=== PATIENT | male | born 1950 | race Caucasian/White ===

== ENCOUNTER 2016-11-29 12:41 | Emergency (ER) | payer MEDICARE, BC ==
[2015-10-22 11:30] VITALS: BMI 24.4
[~2016-11-29 12:41] MED LIST: ASPIRIN EC81 MG PO; BETAPACE 80 MG80 MG PO; BRILINTA90 MG PO; FLOMAX0.4 MG PO; MIRALAX17 GM PO; PRADAXA150 MG PO; PRILOSEC20 MG PO; PROBIOTIC PO; STOOL SOFTENER PO
== END 2016-11-29 14:58 | disposition home or self-care (01) ==
LOC: D.ER 12:41
DX: M54.16 Radiculopathy, lumbar region (principal); Z95.0 Presence of cardiac pacemaker

== ENCOUNTER 2017-12-05 20:27 | Observation (INO) | payer MEDICARE, BC ==
[~2017-12-05] VITALS: Ht 182.9 cm; Wt 81.6 kg
--- NOTE | ~2017-12-05 | MORECARE ---
CASE MANAGEMENT DISCHARGE SUMMARY PATIENT: ARMOND ALLEN UNIT: [id number] ADM DATE: 12/05/17 AGE: 67 : 48 SEX: M ROOM/BED: D.2230 AUTHOR: TIFFANY JIMENEZ PHYSICIAN: REFERRING PHYSICIAN: DANYA CHRISTIANSON MD DATE OF SERVICE: 12/08/17 Discharge Plan Patient Name: ARMOND ALLEN Facility: [facility]:[place] : 1950 Planned Disposition: Home Anticipated Discharge Date: 12/06/17 Discharge Date: 12/06/2017 Expected LOS: 1 Initial Reviewer: [email or web address] Initial Review Date: 12/06/2017 Generated: 12/08/17 10:29 am Comments DCP- Discharge Planning Updated by [email or web address]: Rhoda Lane on 12/06/17 12:[address] Patient Name: ARMOND ALLEN Admission Status: ER Accout number: [id number] Admission Date: 12-05-2017 : 1950 Admission Diagnosis: Attending: DANYA CHRISTIANSON Current LOS: 1 Anticipated DC Date: 12-06-2017 Planned Disposition: Home Primary Insurance: MEDICARE A & B Discharge Planning Comments: CM met with patient and his to discuss discharge planning. He lives with his . He is independent with all ADL's and IADL's. States he uses a cane for ambulation. Denies need for additional DME. Denies need for home health services. States they do not have any outside resources assisting in the home. No needs identified. To discharge home today. CM will continue to follow and assist with discharge planning/needs. Rope Laying Machine Operator: Rhoda Lane DCPIA - Discharge Planning Initial Assessment Updated by [email or web address]: Rhoda Lane on 12/06/17 1:44 pm * Is the patient Alert and Oriented? Yes * How many steps to enter\exit or inside your home? 0/0 * PCP Dr. Arango * Pharmacy [facility] [address] * Preadmission Environment Home with Family * ADLs Independent * Equipment Cane Walker * List name and contact numbers for known caregivers / representatives who currently or will assist patient after discharge: [facility] - [phone] * Verbal permission to speak to the caregivers and representatives has been obtained from the patient. Yes * Community resources currently utilized None * Additional services required to return to the preadmission environment? No * Can the patient safely return to the preadmission environment? Yes * Has this patient been hospitalized within the prior 30 days at any hospital? No Last DP export: 12/06/17 12:47 Patient Name: ARMOND ALLEN Page 85867 at 0929 All edits/amendments must be made on the electronic document DICTATION DATE: 12/08/17928 BOOK AGENT: JOSE 12/08/17928 RPT#: [id number] DC DATE:12/06/17 STATUS: DIS IN [facility] [address] [place] [address] END OF REPORT
--- NOTE | ~2017-12-05 | MORECARE ---
CASE MANAGEMENT DISCHARGE SUMMARY PATIENT: ARMOND ALLEN UNIT: [id number] ADM DATE: 12/05/17 AGE: 67 : 48 SEX: M ROOM/BED: D.2230 AUTHOR: TIFFANY JIMENEZ PHYSICIAN: REFERRING PHYSICIAN: DANYA CHRISTIANSON MD DATE OF SERVICE: 12/06/17 Discharge Plan Patient Name: ARMOND ALLEN Facility: [facility]:[place] : 1950 Planned Disposition: Home Anticipated Discharge Date: 12/06/17 Discharge Date: Expected LOS: 1 Initial Reviewer: [email or web address] Initial Review Date: 12/06/2017 Generated: 12/06/17 2:47 pm Comments DCP- Discharge Planning Updated by [email or web address]: Rhoda Lane on 12/06/17 12:[address] Patient Name: ARMOND ALLEN Admission Status: ER Accout number: [id number] Admission Date: 12-05-2017 : 1950 Admission Diagnosis: Attending: DANYA CHRISTIANSON Current LOS: 1 Anticipated DC Date: 12-06-2017 Planned Disposition: Home Primary Insurance: MEDICARE A & B Discharge Planning Comments: CM met with patient and his to discuss discharge planning. He lives with his . He is independent with all ADL's and IADL's. States he uses a cane for ambulation. Denies need for additional DME. Denies need for home health services. States they do not have any outside resources assisting in the home. No needs identified. To discharge home today. CM will continue to follow and assist with discharge planning/needs. Med Asst: Rhoda Lane DCPIA - Discharge Planning Initial Assessment Updated by [email or web address]: Rhoda Lane on 12/06/17 1:44 pm * Is the patient Alert and Oriented? Yes * How many steps to enter\exit or inside your home? 0/0 * PCP Dr. Arango * [facility] [address] * Preadmission Environment Home with Family * ADLs Independent * Equipment Cane Walker * List name and contact numbers for known caregivers / representatives who currently or will assist patient after discharge: [facility] - [phone] * Verbal permission to speak to the caregivers and representatives has been obtained from the patient. Yes * Community resources currently utilized None * Additional services required to return to the preadmission environment? No * Can the patient safely return to the preadmission environment? Yes * Has this patient been hospitalized within the prior 30 days at any hospital? No Patient Name: ARMODN ALLEN Page [phone] at 1347 All edits/amendments must be made on the electronic document DICTATION DATE: 12/06/171346 MANAGER LABOR DELIVERY: JOSE 12/06/171346 RPT#: [id number] DC DATE: STATUS: ADM IN [facility] [address] [place] [address] END OF REPORT
[2017-12-05] MEDS ORDERED: PEPCID40 MG PO (20:37)
[2017-12-05] MEDS ORDERED: LIPITOR20 MG PO (20:38)
[2017-12-05 20:53] LABS: BASOPHILS 0.6 % (0-2); EOSINOPHILS 1.5 % (0-7); HEMATOCRIT 43.3 % (42.0-54.0); HEMOGLOBIN 14.7 g/dL (13.5-17.5); IMMATURE GRANULOCYTES 0.2 % (0-5); MCH 28.9 pg (26.0-34.0); MCHC 33.9 g/dL (31.0-37.0); MCV 85.2 fL (80.0-100.0); MEAN PLATELET VOLUME 10.1 fL (7.4-10.4); MONOCYTES 11.2 % (2-11); NEUTROPHILS 53.5 % (40-80); PLATELET COUNT 229 10x3/uL (130-400); RBC 5.08 10x6/uL (4.20-6.10); RDW 13.7 % (11.5-14.5); WBC 6.5 10x3/uL (4.8-10.8)
[2017-12-05 21:01] LABS: INR 0.96 (0.85-1.17); PROTIME 12.4 SECONDS (11.6-15.0)
[2017-12-05 21:02] LABS: APTT 32.9 SECONDS (22.8-39.4)
[2017-12-05 21:09] LABS: ALBUMIN 3.5 g/dL (3.4-5.0); ALKALINE PHOSPHATASE 46 U/L (46-116); ALT (SGPT) 16 U/L (10-68); BILIRUBIN - TOTAL 0.29 mg/dL (0.2-1.3); CALC OSMOLALITY 285 mosm/kg (275-300); CARBON DIOXIDE 27.4 mmol/L (21.0-32.0); CHLORIDE - SERUM 106 mmol/L (98-107); CREATININE - SERUM 1.2 mg/dL (0.6-1.3); POTASSIUM - SERUM 3.9 mmol/L (3.5-5.1); PROTEIN - SERUM 6.9 g/dL (6.4-8.2); SODIUM 142 mmol/L (136-145); UREA NITROGEN 15 mg/dL (7-18); eGFR NON AFRICAN AMERICAN 64 mL/min (90-120)
[2017-12-05 21:10] LABS: GLUCOSE 129 mg/dL (74-106)
[2017-12-05 21:19] LABS: CKMB 1.8 U/L (0.0-3.6); CREATINE KINASE 138 UL (21-232)
[2017-12-05 21:22] LABS: TROPONIN-I < 0.017 ng/mL (0.000-0.060)
[2017-12-05 23:54] LABS: CREATINE KINASE 128 UL (21-232); TROPONIN-I < 0.017 ng/mL (0.000-0.060)
[2017-12-06 01:13] VITALS: BP 138/64; BMI 24.4
[2017-12-06 05:50] LABS: BASOPHILS 0.8 % (0-2); EOSINOPHILS 2.5 % (0-7); HEMATOCRIT 42.2 % (42.0-54.0); HEMOGLOBIN 14.3 g/dL (13.5-17.5); IMMATURE GRANULOCYTES 0.2 % (0-5); MCH 28.9 pg (26.0-34.0); MCHC 33.9 g/dL (31.0-37.0); MCV 85.3 fL (80.0-100.0); MEAN PLATELET VOLUME 10.4 fL (7.4-10.4); MONOCYTES 14.1 % (2-11); NEUTROPHILS 48.4 % (40-80); PLATELET COUNT 205 10x3/uL (130-400); RBC 4.95 10x6/uL (4.20-6.10); RDW 13.8 % (11.5-14.5); WBC 5.3 10x3/uL (4.8-10.8)
[2017-12-06 06:13] VITALS: BP 135/60
[2017-12-06 06:28] LABS: ALBUMIN 3.2 g/dL (3.4-5.0); ALKALINE PHOSPHATASE 41 U/L (46-116); ALT (SGPT) 14 U/L (10-68); BILIRUBIN - TOTAL 0.38 mg/dL (0.2-1.3); CALC OSMOLALITY 284 mosm/kg (275-300); CALCIUM 8.9 mg/dL (8.5-10.1); CARBON DIOXIDE 24.8 mmol/L (21.0-32.0); CHLORIDE - SERUM 107 mmol/L (98-107); CKMB 1.9 U/L (0.0-3.6); CREATINE KINASE 114 UL (21-232); CREATININE - SERUM 1.1 mg/dL (0.6-1.3); GLUCOSE 88 mg/dL (74-106); POTASSIUM - SERUM 3.9 mmol/L (3.5-5.1); PROTEIN - SERUM 6.4 g/dL (6.4-8.2); SODIUM 143 mmol/L (136-145); TROPONIN-I < 0.017 ng/mL (0.000-0.060); UREA NITROGEN 15 mg/dL (7-18); eGFR NON AFRICAN AMERICAN 70 mL/min (90-120)
[2017-12-06 09:07] VITALS: BP 129/54
[2017-12-06 10:16] VITALS: Ht 182.9 cm; Wt 81.6 kg
[2017-12-06 10:58] LABS: APPEARANCE CLEAR (CLEAR); BILIRUBIN NEGATIVE (NEGATIVE); COLOR YELLOW (YELLOW); GLUCOSE NEGATIVE (NEGATIVE); KETONE NEGATIVE (NEGATIVE); NITRITE NEGATIVE (NEGATIVE); PROTEIN NEGATIVE (NEGATIVE); SPECIFIC GRAVITY 1.015 (1.005-1.020); UROBILINOGEN NORMAL (NORMAL)
[2017-12-06 12:29] VITALS: BP 127/46
[2017-12-06 12:46] LABS: CKMB 1.7 U/L (0.0-3.6); CREATINE KINASE 106 UL (21-232); TROPONIN-I < 0.017 ng/mL (0.000-0.060)
[2017-12-06] MEDS ORDERED: CARAFATE1 G/10 ML PO (13:16)
[2017-12-06] MEDS ORDERED: PROTONIX40 MG PO (13:16)
[2017-12-06] MEDS ORDERED: PROTONIX20 MG PO (13:18)
== END 2017-12-06 15:01 | disposition home or self-care (01) ==
LOC: D.ER 20:27 → D.MS 22:30 → OBSVTIME 22:30 → D.M2 22:30 → D.MS 23:00
PROVIDERS: Family Medicine
DX: K29.50 Unspecified chronic gastritis without bleeding (principal); K44.9 Diaphragmatic hernia without obstruction or gangrene; K29.80 Duodenitis without bleeding; K21.0 Gastro-esophageal reflux disease with esophagitis; K25.9 Gastric ulcer, unspecified as acute or chronic, without hemorrhage or perforation; I10 Essential (primary) hypertension; I25.10 Atherosclerotic heart disease of native coronary artery without angina pectoris; Z95.0 Presence of cardiac pacemaker

== ENCOUNTER 2019-07-02 19:11 | Observation (INO) | payer MEDICARE, BC ==
[~2019-07-02] VITALS: Ht 182.9 cm; Wt 84.1 kg
[~2019-07-02 19:11] MED LIST changes: +CARAFATE1 G/10 ML PO; +LIPITOR20 MG PO; +PEPCID40 MG PO; +PROTONIX20 MG PO; +PROTONIX40 MG PO
[2019-07-02] MEDS ORDERED: PACERONE400 MG PO (19:20)
[2019-07-02] MEDS ORDERED: PEPCID40 MG PO (19:21)
[2019-07-02] MEDS ORDERED: ELIQUIS5 MG PO (19:21)
[2019-07-02] MEDS ORDERED: ASPIRIN EC81 M1 PO (19:22)
[2019-07-02 20:04] LABS: CALC OSMOLALITY 278 mosm/kg (275-300); CALCIUM 8.6 mg/dL (8.5-10.1); CARBON DIOXIDE 26.4 mmol/L (21.0-32.0); CHLORIDE - SERUM 106 mmol/L (98-107); CREATININE - SERUM 1.6 mg/dL (0.6-1.3); GLUCOSE 80 mg/dL (74-106); POTASSIUM - SERUM 4.2 mmol/L (3.5-5.1); SODIUM 140 mmol/L (136-145); UREA NITROGEN 15 mg/dL (7-18); eGFR NON AFRICAN AMERICAN 46 mL/min (90-120)
[2019-07-02 20:05] LABS: BASOPHILS 0.8 % (0-2); EOSINOPHILS 2.6 % (0-7); HEMATOCRIT 45.7 % (42.0-54.0); HEMOGLOBIN 14.7 g/dL (13.5-17.5); IMMATURE GRANULOCYTES 0.3 % (0-5); MCH 27.7 pg (26.0-34.0); MCHC 32.2 g/dL (31.0-37.0); MCV 86.1 fL (80.0-100.0); MEAN PLATELET VOLUME 9.7 fL (7.4-10.4); MONOCYTES 13.1 % (2-11); NEUTROPHILS 58.2 % (40-80); RBC 5.31 10x6/uL (4.20-6.10); RDW 15.1 % (11.5-14.5); WBC 7.2 10x3/uL (4.8-10.8)
[2019-07-02 20:07] LABS: PLATELET COUNT 255 10x3/uL (130-400)
[2019-07-02 20:11] LABS: APTT 35.8 SECONDS (22.8-39.4); INR 1.03 (0.85-1.17); PROTIME 13.4 SECONDS (11.6-15.0)
[2019-07-02 20:12] LABS: D-DIMER-QUANTITATIVE 0.56 ug/mLFEU (0.20-0.54)
[2019-07-02 20:19] LABS: ALBUMIN 3.8 g/dL (3.4-5.0); ALKALINE PHOSPHATASE 67 U/L (30-120); ALT (SGPT) 31 U/L (10-68); BILIRUBIN - TOTAL 0.48 mg/dL (0.2-1.3); MAGNESIUM - SERUM 2.3 mg/dL (1.8-2.4); PRO BNP 354 pg/mL (0-125); PROTEIN - SERUM 7.6 g/dL (6.4-8.2); THYROID STIMULATING HORMONE 7.62 uIU/mL (0.36-3.74)
[2019-07-02 20:21] LABS: TROPONIN-I < 0.017 ng/mL (0.000-0.060)
[2019-07-02] MEDS ORDERED: PACERONE200 MG PO (22:48)
[2019-07-02] MEDS ORDERED: MIRALAX17 GM PO (22:50)
--- NOTE | 2019-07-02 22:57 | NUR ---
PATIENT ARRIVED FROM THE ER. PATIENT IS ALERT AND ORIENTED, RESTING COMFORTABLY IN BED. RESPIRATIONS ARE EVEN AND UNLABORED. NO S/S OF DISTRESS. NO C/O PAIN. CALL LIGHT WITHIN REACH. WILL CPOC.
[2019-07-02 23:26] VITALS: Ht 182.9 cm; Wt 84.1 kg
[2019-07-03 00:30] VITALS: BP 154/67
[2019-07-03 04:39] VITALS: BP 130/53
[2019-07-03 07:38] VITALS: BP 125/51
[2019-07-03 11:18] VITALS: BP 126/51
--- NOTE | 2019-07-03 15:30 | NUR ---
URINE SPECIMEN COLLECTED AND TAKEN TO LAB. WILL MONITOR.
[2019-07-03 15:39] VITALS: BP 140/57
[2019-07-03 16:03] LABS: BILIRUBIN NEGATIVE (NEGATIVE); GLUCOSE NEGATIVE (NEGATIVE); KETONE NEGATIVE (NEGATIVE); NITRITE NEGATIVE (NEGATIVE); SPECIFIC GRAVITY 1.015 (1.005-1.020); UROBILINOGEN NORMAL (NORMAL)
--- NOTE | 2019-07-03 16:23 | NUR ---
IV AND TELEMETRY DCD. DC PLANS GIVEN. UNDERSTANDING VOICED. ESCORTED TO CAR BY W/C.
--- NOTE | 2019-07-04 08:04 | CN ---
PATIENT NAME:ARMOND ALLEN MEDICAL RECORD: [id number] : [birth year] LOCATION:. D.2121 ADMIT DATE: 07/02/19 ACCOUNT: [id number] CONSULTING PHYSICIAN: DEYANIRA LUNDY MD REFERRING PHYSICIAN: DANYA CHRISTIANSON MD DATE OF CONSULTATION: 07/03/2019 HISTORY OF PRESENT ILLNESS: A 68-year-old gentleman with a history of coronary artery disease, status post approximately 1 year ago at [facility], ascending aneurysm repair as well as bypass times times one and Maze procedure, left atrial appendage ligation, this is historically, no old records yet, although the patient is an excellent historian, most recently he has been having increased ventricular ectopy and was started on amiodarone, had onset of chest pain yesterday, somewhat atypical, no radiation, has been having some dizziness and started on amiodarone and this was decreased recently. We are asked to see him concerning his cardiovascular status. PAST MEDICAL HISTORY: Includes; 1. History of atrial fibrillation status post pacemaker placement. 2. Hypertension. 3. Hyperlipidemia. 4. Coronary artery disease as described above. 5. Ascending aorta repair. MEDICATIONS: Include; 1. Cordarone 200 currently p.o. b.i.d. 2. Atorvastatin 20 mg p.o. daily. 3. Eliquis 5 mg p.o. b.i.d. 4. Flomax 0.4 mg every day. ALLERGIES: ANTIHISTAMINE. SOCIAL HISTORY: Nonsmoker, nondrinker. Easily takes care of all his ADLs. He does try to exercise on a regular basis. REVIEW OF SYSTEMS: The patient reports easy bruising but reports no swollen glands. The patient reports no fever, no night sweats, no significant weight gain, no significant weight loss. No significant exercise tolerance. The patient reports no dry eyes, no irritation, no vision change. Patient reports no difficulty hearing and no ear pain. Patient reports no frequent nose bleeds or nose and sinus problems. Patient reports on arm pain on exertion. No shortness of breath while lying down. No history of heart murmur. Patient reports no cough, no wheezing or coughing up blood. Patient reports no abdominal pain, no vomiting. Normal appetite. No diarrhea and not vomiting blood. No nausea and no constipation. Patient reports no incontinence. No difficulty urinating. No hematuria. No increased frequency. Patient reports no muscle aches. No weakness, no arthralgias, no back pain. No swelling of the extremities. Patient reports no abnormal mole, no jaundice, no rashes. Reports no loss of consciousness. No weakness and no numbness. No seizures, dizziness, or headaches. The patient reports no depression, no sleep disturbance, feeling safe in a relationship and no alcohol abuse. Patient reports on fatigue. Reports no runny nose or sinus pressure. No itching, no hives, and no frequent sneezing. PHYSICAL EXAMINATION: CONSULT REPORT [id number] ARMOND ALLEN GENERAL: Well-developed, well-nourished, no acute distress, appears younger than stated age. VITAL SIGNS: Pulse 76, blood pressure 125/51. HEENT: Normocephalic, atraumatic. NECK: No JVD or bruit. HEART: Regular. A II/ systolic ejection murmur. LUNGS: Good air excursion. ABDOMEN: Soft, nontender. EXTREMITIES: Pulses are well preserved, 2+. There is no edema. DIAGNOSTIC DATA: EKG shows atrial paced, underlying right bundle ventricular, but is maintaining sinus rhythm. IMPRESSION: At this point in time I will check echocardiographic study, make sure no untoward ascending and left ventricular function remains normal. Given his intermittent dizziness and near syncope, we will check carotid Dopplers. Further recommendations based on the above. No contraindication to discharge from my standpoint. TRANSINT:[id number] Voice Confirmation ID: [id number] DOCUMENT ID: [id number] DEYANIRA LUNDY MD at 0804 CC: [id number] DICTATION DATE: 07/03/19909 SQL REPORT WRITER: 07/03/19 1208 DIS IN 07/03/19 [facility] [address] [place] [id number]
--- NOTE | 2019-07-04 10:33 | EC ---
PATIENT:ARMOND ALLEN DATE OF SERVICE: 07/02/19 SEX: M MEDICAL RECORD: [id number] DATE OF : [birth year] LOCATION:D.M2 D.212 AGE OF PATIENT: 68 ADMISSION DATE: 07/02/19 REFERRING PHYSICIAN: INTERPRETING PHYSICIAN: DEYANIRA LUNDY MD ECHOCARDIOGRAM REPORT ECHO CHARGES 4 ECHO COMPLETE Date: 07/03/19 CLINICAL DIAGNOSIS: CP H/O AORTIC ANEURYSM REPAIR/ CABG ECHOCARDIOGRAPHIC MEASUREMENTS (adult normal given) AC root (d.<3.7cm) 4.0 cm LV Septum d (<1.2 cm> 1.3 cm Valve Excursion 2.1 cm LV Septum (systole) 1.8 cm Left Atria (s.<4.0cm> 3.6 cm LVPW d(<1.2cm) 1.2 cm RV (d.<2.3cm) 3.2 cm LVPW (sytole) 1.8 cm LV diastole(<5.6CM) 5.4 cm MV E-F(>70mm/sec) cm LV systole 3.3 cm LVOT Diameter 2.3 cm MV exc.(>10mm) cm Est.ejection fraction (50-75%) % DOPPLER: LVIT cm/sec A 57.0 cm/sec E 71.0 cm/sec LA cm/sec RVSP 37.1 mmHg LVOT 117 cm/sec AOP1/2T m/s Asc. Ao 141 cm/sec RVOT 57.0 cm/sec RA cm/sec PA 67.0 cm/sec AV Gradient Peak 7.9 mmHg AV Mean 4.1 mmHg AV Area 3.1 cm MV Gradient Peak 5.4 mmHg MV Mean 2.3 mmHg MV Area cm COMMENTS: Au Pair: 1 SHERRY ASHLEY Director Of User Experience: 3 Dr. Cotto TAPE# PACS Pericardial Effusion N DATE OF SERVICE: Adequate 2D, color flow imaging, spectral Doppler, and M-Mode. Mild LVH. LV internal dimension is normal. Wall motion is normal. EF is greater than or equal to 55%. Aortic valve is tricuspid. No evidence of stenosis by Doppler interrogation. Left atrium is normal at 3.6 cm. Mitral valve shows no prolapse. [id number] MR. Right-sided chambers are grossly normal. Moderate TR. RV systolic pressure is estimated greater than or equal ECHOCARDIOGRAM REPORT [id number] ARMOND ALLEN to 37 mmHg via the continuity equation. Ascending aorta measures at 3.8 cm. TRANSINT:[id number] Voice Confirmation ID: [id number] DOCUMENT ID: [id number] DEYANIRA LUNDY MD at 1033 CC: [id number] DICTATION DATE: 07/04/19 08 TRADER: 07/04/19 0938 DIS IN 07/03/19 [id number] [place] [address]
== END 2019-07-03 16:24 | disposition home or self-care (01) ==
LOC: D.ER 19:11 → D.M2 21:33 → OBSVTIME 22:13 → D.M2 22:39 → D.SDCHOLD 07-03 14:55 → D.M2 07-03 14:57
PROVIDERS: Family Medicine; ADMIT Internal Medicine Nephrology; ATTEND Internal Medicine Nephrology
DX: I25.119 Atherosclerotic heart disease of native coronary artery with unspecified angina pectoris (principal); N17.9 Acute kidney failure, unspecified; I10 Essential (primary) hypertension; I48.91 Unspecified atrial fibrillation; N40.0 Benign prostatic hyperplasia without lower urinary tract symptoms; K21.9 Gastro-esophageal reflux disease without esophagitis; K22.70 Barrett's esophagus without dysplasia; E78.5 Hyperlipidemia, unspecified